=== PATIENT | male | born 2000 | race Caucasian/White ===

== ENCOUNTER 2023-07-14 06:06 | Day surgery (SDC) | payer OTHER ==
[~2023-07-14] VITALS: Ht 188 cm; Wt 87.4 kg
[2023-07-14] MEDS ORDERED: LR 1,000 ML IV SCH ×2 (06:35→09:15)
[2023-07-14] MEDS ORDERED: PREDOPD OS (06:42)
[2023-07-14] MEDS ORDERED: MOXI0.5S OS (06:42)
[2023-07-14] MEDS ORDERED: LIDOCAINE 1% MDV 20ML VIAL As Ordered ONE (07:09)
[2023-07-14] MEDS ORDERED: fentaNYL 100 MCG/2 ML INJECTION As Ordered ONE (07:18)
[2023-07-14] MEDS ORDERED: ONDANSETRON 4MG 2ML VIAL As Ordered ONE (07:19)
[2023-07-14] MEDS ORDERED: MIDAZOLAM INJ 2MG/2ML VIAL As Ordered ONE (07:19)
[2023-07-14] MEDS ORDERED: propofoL 200 MG/20 ML VIAL As Ordered ONE (07:19)
[2023-07-14] MEDS ORDERED: LIDOCAINE 2% 100MG/5ML SDV (FOR ANES.) As Ordered ONE (07:19)
[2023-07-14] MEDS ORDERED: ceFAZolin SOD 2 GM in IV 1 EA IV ONE (07:30)
[2023-07-14] MEDS ORDERED: HYDROmorphone HCL 2MG/ML 1ML VIAL As Ordered ONE (08:01)
[2023-07-14] MEDS ORDERED: ONDANSETRON 4MG 2ML VIAL IV PRN (09:15)
[2023-07-14] MEDS ORDERED: HYDROMORPHONE HCL 0.5 MG/ 0.5 ML SYRINGE IV PRN (09:15)
[2023-07-14] MEDS ORDERED: oxyCODONE 5MG TAB PO PRN (09:15)
[2023-07-14] MEDS ORDERED: fentaNYL 100 MCG/2 ML INJECTION IV PRN (09:15)
[2023-07-14 10:30] VITALS: BP 123/77; TEMP 97.3; O2SAT 98
[2023-07-14] MEDS ORDERED: HYDR-3713 (21:38)
== END 2023-07-14 10:30 | disposition home or self-care (01) ==
LOC: M SDC 06:06
PROVIDERS: ATTEND Podiatrist Foot & Ankle Surgery
DX: M21.611 Bunion of right foot (principal); M20.11 Hallux valgus (acquired), right foot; Z88.0 Allergy status to penicillin
CPT/HCPCS: 28299; C1713; J0665; J1100; J1170; J2250; J2405; J3010

== ENCOUNTER 2023-10-26 07:58 | Day surgery (SDC) | payer OTHER ==
[~2023-10-26] VITALS: Ht 190.5 cm; Wt 86.2 kg
[~2023-10-26 07:58] MED LIST: HYDR-3713; MOXI0.5S OS; PREDOPD OS
[2023-10-26] MEDS ORDERED: ceFAZolin SOD 2 GM in IV 1 EA IV ONE (08:40)
[2023-10-26] MEDS: LR 1,000 ML IV SCH ×2 (08:56→11:05)
[2023-10-26] MEDS ORDERED: fentaNYL 100 MCG/2 ML INJECTION As Ordered ONE (09:07)
[2023-10-26] MEDS ORDERED: MIDAZOLAM INJ 2MG/2ML VIAL As Ordered ONE (09:07)
[2023-10-26] MEDS ORDERED: propofoL 200 MG/20 ML VIAL As Ordered ONE (09:07)
[2023-10-26] MEDS ORDERED: LIDOCAINE 2% 100MG/5ML SDV (FOR ANES.) As Ordered ONE (09:07)
[2023-10-26] MEDS ORDERED: KETOROLAC 60MG 2ML VIAL As Ordered ONE (09:38)
[2023-10-26] MEDS ORDERED: ONDANSETRON 4MG 2ML VIAL As Ordered ONE (09:39)
[2023-10-26] MEDS ORDERED: ONDANSETRON 4MG 2ML VIAL IV PRN (10:40)
[2023-10-26] MEDS ORDERED: LIDOCAINE 1% MDV 20ML VIAL As Ordered ONE (10:49)
[2023-10-26] MEDS: MORPHINE 2 MG/ML 1ML VIAL IV PRN (11:04)
[2023-10-26] MEDS: oxyCODONE 5MG TAB PO PRN (11:04)
[2023-10-26 11:20] VITALS: BP 118/77; TEMP 97.3; O2SAT 98
== END 2023-10-26 12:05 | disposition home or self-care (01) ==
LOC: M SDC 07:58
PROVIDERS: ATTEND Podiatrist Foot & Ankle Surgery
DX: M21.612 Bunion of left foot (principal); Z88.0 Allergy status to penicillin; Z79.899 Other long term (current) drug therapy
CPT/HCPCS: 28299; 76000; C1713; J0665; J1100; J1885; J2250; J2405; J3010